=== PATIENT | female | born 1960 | race Caucasian/White ===

== ENCOUNTER 2017-05-23 21:59 | Emergency (ER) | payer OTHER, MEDICAID ==
[~2017-05-23] VITALS: Ht 157.5 cm; Wt 86.2 kg
[~2017-05-23 21:59] MED LIST: ACET167L15 PO; ACET325T53 PO; BISA5TAB10 PO; CAT.1 PO; DICL100G16 TP; DOCU-144 PO; DULO60CA64 PO; GABA-531 PO; LACT10SO6 PO; LUBI24CA5 PO; MET10 PO; MONT10TA25 PO; MORP60TA34 PO; MORPHINE IR PO; MULT-1089 PO; NALO25TA PO; OXYC-130 PO; OXYC-133 PO; PERC10 GT; PRAM28.3 RC; SENN8.6T19 PO; SULF-261 PO; [UNRECOGNIZED DRUG - CODE] PO
[2017-05-23 22:00] VITALS: BP_SYST 196
--- NOTE | 2017-05-23 22:00 | NUR ---
Patient to ER bed 1 to gown for evaluation. Side rails up. Report given to JOON JOSEPH.
--- NOTE | 2017-05-23 22:10 | NUR ---
Patient brought to ER by ambulance from facility C/O 06/07 RLQ abdominal pain, radiating to right hip and pelvis. Denies N/V/D/C. state sthat she is taking pain medications around the clock but pain is unrelieved. Denies injury or trauma. AAOx4, unlabored breathing, no signs of acute distress.
--- NOTE | 2017-05-23 22:16 | NUR ---
ER MD Jenny lyn at bedside evaluating the patient
[2017-05-23] MEDS ORDERED: NACL 0.9% 1,000 ML IV ONE (22:30)
[2017-05-23] MEDS ORDERED: KETOROLAC TROMETHAMINE 30 MG VIAL IVP ONE (22:30)
--- NOTE | 2017-05-23 22:40 | NUR ---
# 20 gauge angiocath placed to RIGHT WRIST. Use of asceptic technique. Opsite placed over site. Blood return noted. Blood for lab drawn from site. Flushed with 10 cc of normal saline. No evidence of infiltration noted. Patient tolerated well.
[2017-05-23 22:53] LABS: BASOPHILS # (AUTO) 0.1 K/uL (0.0-0.2); EOSINOPHILS # (AUTO) 0.3 K/uL (0.0-0.4); EOSINOPHILS % (AUTO) 4.5 % (0.0-4.0); HEMATOCRIT 33.6 % (36-48); HEMOGLOBIN 10.8 g/dL (12.0-16.0); LYMPHOCYTES # (AUTO) 1.5 K/uL (1.0-5.5); LYMPHOCYTES % (AUTO) 22.2 % (20.5-51.5); MEAN CORPUSCULAR HEMOGLOBIN 26 pg (27-31); MEAN CORPUSCULAR HGB CONC 32 % (32-36); MEAN CORPUSCULAR VOLUME 82 fL (79.0-98.0); MONOCYTES # (AUTO) 0.7 K/uL (0.0-1.0); NEUTROPHILS # (AUTO) 4.3 K/uL (1.8-7.7); NEUTROPHILS % (AUTO) 62.3 % (40.0-70.0); PLATELET COUNT (AUTO) 399 K/uL (130-430); RED CELL DISTRIBUTION WIDTH 13.8 % (9.0-15.0); WHITE BLOOD COUNT (AUTO) 6.9 K/uL (4.8-10.8)
[2017-05-23 23:02] LABS: CALCIUM 9.3 mg/dL (8.4-11.0); CREATININE 0.69 mg/dL (0.55-1.30); POTASSIUM 3.6 mmol/L (3.5-5.1)
[2017-05-23 23:07] LABS: TOTAL BILIRUBIN 0.1 mg/dL (0.0-1.0)
[2017-05-23 23:08] LABS: BILIRUBIN,URINE NEGATIVE (NEGATIVE); BLOOD, URINE TRACE (NEGATIVE); CLARITY/URINE CLEAR (CLEAR); COLOR,URINE YELLOW (YELLOW); GLUCOSE,URINE NEGATIVE (NEGATIVE); KETONES,URINE NEGATIVE (NEGATIVE); LEUKOCYTE ESTERASE ,URINE NEGATIVE (NEGATIVE); NITRITE, URINE NEGATIVE (NEGATIVE); PROTEIN URINE NEGATIVE (NEGATIVE); UROBILINOGEN,URINE 0.2 (0.2-1.0)
[2017-05-23 23:11] LABS: BACTERIA,URINE FEW /HPF (None Seen); RBC,URINE 0-3 /HPF (0-3); WBC,URINE 0-3 /HPF (0-3)
--- NOTE | 2017-05-23 23:18 | NUR ---
Patient reports pain 4/10 15 minutes after administration of toradol & NS. No adverse reactions noted. Will continue to monitor.
--- NOTE | 2017-05-24 00:11 | NUR ---
Patient off the unit via gurney for CT
[2017-05-24] MEDS ORDERED: IOHEXOL 100 ML IV ONE (00:14)
--- NOTE | 2017-05-24 01:20 | NUR ---
Patient calm on gurney, no signs of acute distress. VS WNL
[2017-05-24 02:50] VITALS: BP_SYST 144
--- NOTE | 2017-05-24 02:50 | NUR ---
Patient given written and verbal discharge instructions and verbalizes understanding. ER MD Alvarado discussed with patient the results and treatment provided. Patient in stable condition. ID arm band removed. IV catheter removed intact and dressing applied, no active bleeding. Patient educated on pain management and to follow up with PMD. Pain Scale 0/10. Opportunity for questions provided and answered. Patient transported back to home facility by [facility] ambulance Report given at home facility to [place] @ [phone]
== END 2017-05-24 02:50 | disposition home or self-care (01) ==
LOC: SED 21:59
DX: R59.0 Localized enlarged lymph nodes (principal); D64.9 Anemia, unspecified; I10 Essential (primary) hypertension; E78.5 Hyperlipidemia, unspecified; F32.9 Major depressive disorder, single episode, unspecified; Z90.710 Acquired absence of both cervix and uterus; Z88.0 Allergy status to penicillin; Z88.5 Allergy status to narcotic agent; Z88.1 Allergy status to other antibiotic agents; Z79.899 Other long term (current) drug therapy
CPT/HCPCS: 36415; 74177; 80053; 81000; 83690; 85025; 96361; 96374; 99285; J1885; J7030; Q9967

== ENCOUNTER 2019-09-18 19:40 | Emergency (ER) | payer OTHER, MEDICAID ==
[~2019-09-18] VITALS: Ht 157.5 cm; Wt 99.8 kg
[~2019-09-18 19:40] MED LIST changes: -DICL100G16 TP; +DICL100G19 TP; -DULO60CA64 PO; +DULO60CA65 PO
[2019-09-18 19:49] VITALS: BP_SYST 186
--- NOTE | 2019-09-18 19:49 | NUR ---
Pt BIB ALS from [facility] for HTN and intermittent abdominal pain with nausea that has been progressively worsening since 1700 today. Per EMS, Nurse sent pt to ER r/t B/P 230/110. Pt presently states that she feel better.
--- NOTE | 2019-09-18 20:00 | NUR ---
Dr. Acuña at bedside.
[2019-09-18] MEDS ORDERED: NACL 0.9% 1,000 ML IV ONE (20:07)
[2019-09-18] MEDS ORDERED: PROCHLORPERAZINE EDISYLATE 10 MG/2 ML VIAL IVP ONE (20:15)
[2019-09-18 20:17] LABS: BILIRUBIN,URINE NEGATIVE (NEGATIVE); BLOOD, URINE NEGATIVE (NEGATIVE); CLARITY/URINE CLEAR (CLEAR); GLUCOSE,URINE NEGATIVE (NEGATIVE); KETONES,URINE NEGATIVE (NEGATIVE); LEUKOCYTE ESTERASE ,URINE NEGATIVE (NEGATIVE); NITRITE, URINE NEGATIVE (NEGATIVE); PROTEIN URINE NEGATIVE (NEGATIVE); UROBILINOGEN,URINE 0.2 (0.2-1.0)
--- NOTE | 2019-09-18 20:24 | NUR ---
X-ray at bedside.
[2019-09-18] MEDS ORDERED: cloNIDine HCL 0.1 MG TABLET PO ONE (20:30)
[2019-09-18] MEDS ORDERED: PANTOPRAZOLE SODIUM 40 MG/VIAL (PROTONIX) IVP ONE (20:30)
[2019-09-18 20:32] LABS: COLOR,URINE STRAW (YELLOW)
--- NOTE | 2019-09-18 21:00 | NUR ---
# 22 gauge angiocath placed to LUE. Use of asceptic technique. Opsite placed over site. Blood return noted. Blood for lab drawn from site. Flushed with 10 cc of normal saline. No evidence of infiltration noted. Patient tolerated well.
--- NOTE | 2019-09-18 21:08 | NUR ---
Specimen collected for influenza antigen from right nare, sent to lab.
[2019-09-18 21:15] LABS: BASOPHILS # (AUTO) 0.1 K/uL (0.0-0.2); BASOPHILS % (AUTO) 0.8 % (0.0-2.0); EOSINOPHILS # (AUTO) 0.1 K/uL (0.0-0.4); EOSINOPHILS % (AUTO) 0.8 % (0.0-4.0); HEMATOCRIT 43.1 % (36-48); HEMOGLOBIN 14.1 g/dL (12.0-16.0); LYMPHOCYTES # (AUTO) 0.8 K/uL (1.0-5.5); LYMPHOCYTES % (AUTO) 11.7 % (20.5-51.5); MEAN CORPUSCULAR HEMOGLOBIN 29 pg (27-31); MEAN CORPUSCULAR HGB CONC 33 % (32-36); MEAN CORPUSCULAR VOLUME 88 fL (79.0-98.0); MONOCYTES # (AUTO) 0.4 K/uL (0.0-1.0); MONOCYTES % (AUTO) 5.5 % (1.7-9.3); NEUTROPHILS # (AUTO) 5.8 K/uL (1.8-7.7); NEUTROPHILS % (AUTO) 81.2 % (40.0-70.0); PLATELET COUNT (AUTO) 308 K/uL (130-430); RED BLOOD CELL COUNT(AUTO) 4.87 MIL/uL (4.2-6.2); RED CELL DISTRIBUTION WIDTH 13.7 % (9.0-15.0); WHITE BLOOD COUNT (AUTO) 7.2 K/uL (4.8-10.8)
[2019-09-18 21:36] LABS: CALCIUM 8.8 mg/dL (8.4-11.0); CREATININE 0.75 mg/dL (0.55-1.30); POTASSIUM 3.4 mmol/L (3.5-5.1)
[2019-09-18 21:42] LABS: ALBUMIN 3.8 g/dL (3.4-4.8); TOTAL BILIRUBIN 0.3 mg/dL (0.0-1.0)
[2019-09-18] MEDS ORDERED: hydrALAZINE HCL 20 MG/ML VIAL IVP ONE (23:15)
--- NOTE | 2019-09-18 23:55 | NUR ---
Blood pressure is currently 155/79. Dr. Acuña made aware. Per Dr. Acuña, hold off on Apresoline 5mg IVP.
--- NOTE | 2019-09-19 02:26 | NUR ---
Patient given written and verbal discharge instructions and verbalizes understanding. ER MD discussed with patient the results and treatment provided. Patient in stable condition. ID arm band removed. IV catheter removed intact and dressing applied, no active bleeding. Rx of Protonix given. Patient educated on pain management and to follow up with PMD. Pain Scale 0. Opportunity for questions provided and answered. Medication side effect fact sheet provided.
[2019-09-19 02:27] VITALS: BP_SYST 135
== END 2019-09-19 02:27 | disposition home or self-care (01) ==
LOC: SED 19:40
DX: K29.70 Gastritis, unspecified, without bleeding (principal); I10 Essential (primary) hypertension; F32.9 Major depressive disorder, single episode, unspecified; Z88.0 Allergy status to penicillin; Z88.1 Allergy status to other antibiotic agents; Z88.5 Allergy status to narcotic agent; Z79.899 Other long term (current) drug therapy
CPT/HCPCS: 36415; 71045; 80053; 81003; 83690; 83880; 84484; 85025; 86710; 93005; 96361; 96374; 96375; 99284; C9113; J0360; J0780; J7030

== ENCOUNTER 2022-04-07 19:05 | Emergency (ER) | payer OTHER, MEDICAID ==
[~2022-04-07] VITALS: Ht 154.9 cm; Wt 97.5 kg
[~2022-04-07 19:05] MED LIST changes: -MET10 PO; +METH-797 PO; +MONT-40 PO; -MONT10TA25 PO; -NALO25TA PO; +NALO25TA4 PO
[2022-04-07 19:28] VITALS: BP_SYST 166
--- NOTE | 2022-04-07 19:30 | NUR ---
PLACED IN BED #7 BY [facility] EMT. RIGHT SHOULDER SLING IN PLACE PER EMS. REPORT FROM EMT. ICE PACK PROVIDED. POSITION OF COMFORT. SIDE RAIL UP. PT FROM [facility].
[2022-04-07] MEDS ORDERED: MORPHINE 4 MG INJ. 4 MG/ML VIAL IVP ONE (19:45)
[2022-04-07] MEDS ORDERED: LIDOCAINE 1% 10 MG/ML, 50 ML MDV INJ ONE (20:45)
[2022-04-07] MEDS ORDERED: LIDOCAINE 1%, 20 ML MDV 20 ML ONE (20:54)
--- NOTE | 2022-04-07 21:01 | NUR ---
pt in bed. comfortable and medicated to cover he r10/10 RT shoulder pain. s/p dislocation
--- NOTE | 2022-04-07 21:36 | NUR ---
Patient given written and verbal discharge instructions and verbalizes understanding. ER MD discussed with patient the results and treatment provided. Patient in stable condition. ID arm band removed. IV catheter removed intact and dressing applied, no active bleeding. Patient educated on pain management and to follow up with PMD. Pain Scale 0. Opportunity for questions provided and answered. Medication side effect fact sheet provided.
--- NOTE | 2022-04-07 21:44 | NUR ---
ARM SLING APPLIED ; PENDING RIDE; IV REMOVED
[2022-04-07 22:08] VITALS: BP_SYST 125
== END 2022-04-07 22:10 | disposition home or self-care (01) ==
LOC: SED 19:05
DX: G56.91 Unspecified mononeuropathy of right upper limb (principal); M24.411 Recurrent dislocation, right shoulder; M25.511 Pain in right shoulder; I10 Essential (primary) hypertension; Z88.0 Allergy status to penicillin; Z88.1 Allergy status to other antibiotic agents; Z88.5 Allergy status to narcotic agent; Z79.899 Other long term (current) drug therapy
CPT/HCPCS: 99283; 96374; 73030; J2001; J2270

== ENCOUNTER 2022-12-02 02:10 | Emergency (ER) | payer OTHER, MEDICAID ==
[~2022-12-02] VITALS: Ht 154.9 cm; Wt 99.8 kg
[~2022-12-02 02:10] MED LIST changes: +BISA-140 PO; -BISA5TAB10 PO
--- NOTE | 2022-12-02 02:21 | NUR ---
PT [facility] [id number] [facility] C/O RECTAL BLEED BRIGHT RED THAT STARTED AT 10AM YESTERDAY AM. PMH: HEMORRHOIDS, COPD, HLD, HTN, ANEMIA
[2022-12-02 02:22] VITALS: BP_SYST 166
--- NOTE | 2022-12-02 02:36 | NUR ---
pt is aa&ox4. BELARUSIAN SPEAKING. NAD. DENIES PAIN, AFEBRILE. ELECTRIC WHEELCHAIR BOUND AT THE ASSISTED LIVING.
--- NOTE | 2022-12-02 03:41 | NUR ---
ER at bedside examining patient.
[2022-12-02] MEDS ORDERED: HYDR30CR79 TP (03:48)
[2022-12-02 04:26] VITALS: BP_SYST 148
--- NOTE | 2022-12-02 08:50 | NUR ---
Patient given written and verbal discharge instructions and verbalizes understanding. ER MD discussed with patient the results and treatment provided. Patient in stable condition. ID arm band removed. IV catheter removed intact and dressing applied, no active bleeding. Opportunity for questions provided and answered.
== END 2022-12-02 08:50 ==
LOC: SED 02:10
DX: K64.9 Unspecified hemorrhoids (principal); R42 Dizziness and giddiness; K62.89 Other specified diseases of anus and rectum; I10 Essential (primary) hypertension; Z88.0 Allergy status to penicillin; Z88.5 Allergy status to narcotic agent; Z88.8 Allergy status to other drugs, medicaments and biological substances; Z79.899 Other long term (current) drug therapy
CPT/HCPCS: 99283

== ENCOUNTER 2023-02-25 11:02 | Emergency (ER) | payer OTHER, MEDICAID ==
[~2023-02-25] VITALS: Ht 157.5 cm; Wt 81.6 kg
[~2023-02-25 11:02] MED LIST changes: +HYDR30CR79 TP
[2023-02-25 11:21] VITALS: BP_SYST 194
--- NOTE | 2023-02-25 11:31 | NUR ---
63 yo[facility]f [facility] headache pounding x 3days. no chest, pain, sob. pt took morphine, methadone, and tramadol at 0830. pmh: copd, high chol, polyneuropathy, osteoarthritis, htn, anemia, scoliosis
--- NOTE | 2023-02-25 11:46 | NUR ---
michela padron bedside assessing pt
[2023-02-25 11:59] LABS: BILIRUBIN,URINE NEGATIVE (NEGATIVE); CLARITY/URINE SL CLOUDY (CLEAR); COLOR,URINE YELLOW (YELLOW); GLUCOSE,URINE NEGATIVE (NEGATIVE); KETONES,URINE 1+ (NEGATIVE); LEUKOCYTE ESTERASE ,URINE TRACE (NEGATIVE); NITRITE, URINE NEGATIVE (NEGATIVE); PROTEIN URINE 1+ (NEGATIVE); UROBILINOGEN,URINE 0.2 (0.2-1.0)
[2023-02-25] MEDS ORDERED: MORPHINE 4 MG INJ. 4 MG/ML VIAL IVP ONE (12:00)
[2023-02-25 12:06] LABS: BLOOD, URINE TRACE (NEGATIVE)
--- NOTE | 2023-02-25 12:15 | NUR ---
PT TAKEN TO CT
[2023-02-25 12:22] LABS: BACTERIA,URINE RARE /HPF (None Seen); MUCUS,URINE 1+ /LPF (None Seen)
--- NOTE | 2023-02-25 12:50 | NUR ---
PT REPORTS HEADACHE HAS RESOLVED AT THIS TIME.
--- NOTE | 2023-02-25 15:45 | NUR ---
XIAO FROM [facility] AWARE PT TO BE TRANSPORTED BACK IN THE NEXT 5 MINS.
[2023-02-25 15:48] VITALS: BP_SYST 158
--- NOTE | 2023-02-25 15:48 | NUR ---
Patient given written and verbal discharge instructions and verbalizes understanding. ER MD discussed with patient the results and treatment provided. Patient in stable condition. ID arm band removed. IV catheter removed intact and dressing applied, no active bleeding. Patient educated on pain management and to follow up with PMD. Pain Scale . Opportunity for questions provided and answered. Medication side effect fact sheet provided.
== END 2023-02-25 15:48 | disposition home or self-care (01) ==
LOC: SED 11:02
DX: R51.9 Headache, unspecified (principal); I10 Essential (primary) hypertension; Z88.0 Allergy status to penicillin; Z88.1 Allergy status to other antibiotic agents; Z88.5 Allergy status to narcotic agent; Z79.899 Other long term (current) drug therapy
CPT/HCPCS: 99285; 96374; 70450; 81000; 76376; J2270

== ENCOUNTER 2023-03-30 19:28 | Emergency (ER) | payer OTHER, MEDICAID ==
[~2023-03-30] VITALS: Ht 157.5 cm; Wt 90.7 kg
[2023-03-30 19:32] VITALS: BP_SYST 158; PULSE 96; RESP 20; TEMP 98.1; O2SAT 97
--- NOTE | 2023-03-30 20:24 | NUR ---
Patient to ER bed 4 to gown for evaluation. Side rails up. Report given to RUDDY DUPREE(REG).
--- NOTE | 2023-03-30 20:30 | NUR ---
FIRST CONTACT WITH PT. ASSESSMENT COMPLETED. AWAITING EVAL AND ORDERS.
[2023-03-30 20:43] LABS: ALBUMIN 3.6 g/dL (3.4-4.8); CALCIUM 9.1 mg/dL (8.4-11.0); CREATININE 1.1 mg/dL (0.55-1.30); TOTAL BILIRUBIN 0.3 mg/dL (0.0-1.0)
[2023-03-30 20:44] LABS: BASOPHILS # (AUTO) 0.1 K/uL (0.0-0.2); BASOPHILS % (AUTO) 0.9 % (0.0-2.0); EOSINOPHILS # (AUTO) 0.1 K/uL (0.0-0.4); EOSINOPHILS % (AUTO) 1.6 % (0.0-4.0); HEMOGLOBIN 12.6 g/dL (12.0-16.0); LYMPHOCYTES # (AUTO) 1.3 K/uL (1.0-5.5); MEAN CORPUSCULAR HEMOGLOBIN 29 pg (27-31); MEAN CORPUSCULAR HGB CONC 33 % (32-36); MEAN CORPUSCULAR VOLUME 88 fL (79.0-98.0); MONOCYTES # (AUTO) 0.9 K/uL (0.0-1.0); MONOCYTES % (AUTO) 10.6 % (1.7-9.3); NEUTROPHILS # (AUTO) 6.5 K/uL (1.8-7.7); NEUTROPHILS % (AUTO) 72.9 % (40.0-70.0); PLATELET COUNT (AUTO) 293 K/uL (130-430); RED BLOOD CELL COUNT(AUTO) 4.35 MIL/uL (4.2-6.2); RED CELL DISTRIBUTION WIDTH 14.3 % (9.0-15.0); WHITE BLOOD COUNT (AUTO) 8.9 K/uL (4.8-10.8)
--- NOTE | 2023-03-30 21:13 | NUR ---
URINE COLLECTED PER ORDER. SENT TO LAB.
[2023-03-30] MEDS ORDERED: LORazepam 1 MG TABLET PO ONE (22:00)
[2023-03-30 23:17] LABS: BILIRUBIN,URINE NEGATIVE (NEGATIVE); CLARITY/URINE CLEAR (CLEAR); COLOR,URINE YELLOW (YELLOW); GLUCOSE,URINE NEGATIVE (NEGATIVE); KETONES,URINE NEGATIVE (NEGATIVE); LEUKOCYTE ESTERASE ,URINE NEGATIVE (NEGATIVE); NITRITE, URINE NEGATIVE (NEGATIVE); PROTEIN URINE NEGATIVE (NEGATIVE); UROBILINOGEN,URINE 0.2 (0.2-1.0)
[2023-03-30 23:26] LABS: BLOOD, URINE TRACE (NEGATIVE)
[2023-03-30 23:44] LABS: BACTERIA,URINE FEW /HPF (None Seen); MUCUS,URINE None Seen /LPF (None Seen); RBC,URINE 0-3 /HPF (0-3); WBC,URINE 0-3 /HPF (0-3)
--- NOTE | 2023-03-31 01:26 | NUR ---
Patient given written and verbal discharge instructions and verbalizes understanding. ER MD sr discussed with patient the results and treatment provided. Patient in stable condition. ID arm band removed. IV catheter removed intact and dressing applied, no active bleeding. Rx of none given. Patient educated on pain management and to follow up with PMD. Pain Scale . Opportunity for questions provided and answered. Medication side effect fact sheet provided.
[2023-03-31 01:28] VITALS: BP_SYST 142; PULSE 82; RESP 16; TEMP 98.1; O2SAT 96
== END 2023-03-31 01:28 | disposition home or self-care (01) ==
LOC: SED 19:28
DX: R33.9 Retention of urine, unspecified (principal); F41.9 Anxiety disorder, unspecified; I10 Essential (primary) hypertension; Z88.0 Allergy status to penicillin; Z88.1 Allergy status to other antibiotic agents; Z88.5 Allergy status to narcotic agent; Z79.899 Other long term (current) drug therapy
CPT/HCPCS: 36415; 80053; 81000; 83690; 85025; 99283; 99284

== ENCOUNTER 2023-06-28 14:41 | Emergency (ER) | payer OTHER, MEDICAID ==
[~2023-06-28] VITALS: Ht 157.5 cm; Wt 81.6 kg
[2023-06-28 14:45] VITALS: PULSE 96; RESP 18; TEMP 97.1; O2SAT 99
[2023-06-28] MEDS ORDERED: MORPHINE 4 MG INJ. 4 MG/ML VIAL IM ONE (15:45)
[2023-06-28 17:09] LABS: BILIRUBIN,URINE NEGATIVE (NEGATIVE); BLOOD, URINE NEGATIVE (NEGATIVE); COLOR,URINE YELLOW (YELLOW); GLUCOSE,URINE NEGATIVE (NEGATIVE); KETONES,URINE 1+ (NEGATIVE); LEUKOCYTE ESTERASE ,URINE NEGATIVE (NEGATIVE); NITRITE, URINE NEGATIVE (NEGATIVE); PH,URINE 5.5 (5.0-8.0); PROTEIN URINE TRACE (NEGATIVE); UROBILINOGEN,URINE 0.2 (0.2-1.0)
[2023-06-28 17:10] LABS: CLARITY/URINE SLIGHTLY CLOUDY (CLEAR)
[2023-06-28] MEDS ORDERED: HYDR-3927 PO (17:35)
[2023-06-28] MEDS ORDERED: SULF1TAB48 PO (17:35)
[2023-06-28] MEDS ORDERED: HYDROcodone/ACETAMIN 5-325 MG TAB (NORCO/ VICODIN) PO ONE (17:45)
[2023-06-28] MEDS ORDERED: SULFAMETHOXAZOLE/TRIMETHOPR DS 1 TABLET PO ONE (17:45)
[2023-06-28 18:20] LABS: RBC,URINE 0-3 /HPF (0-3); WBC,URINE 0-3 /HPF (0-3)
[2023-06-28 18:21] LABS: BACTERIA,URINE MANY /HPF (None Seen); CALCIUM OXALATE CRYSTALS,UR 0-10 /HPF (None Seen); MUCUS,URINE 1+ /LPF (None Seen)
[2023-06-28 19:43] VITALS: BP_SYST 159; PULSE 94; RESP 18; TEMP 98.6; O2SAT 96
== END 2023-06-28 19:47 | disposition home or self-care (01) ==
LOC: SED 14:41
DX: N30.90 Cystitis, unspecified without hematuria (principal); G89.29 Other chronic pain; M54.50 Low back pain, unspecified; I10 Essential (primary) hypertension; Z88.0 Allergy status to penicillin; Z88.1 Allergy status to other antibiotic agents; Z88.5 Allergy status to narcotic agent; Z79.899 Other long term (current) drug therapy
CPT/HCPCS: 99283; 81001; 87086; 96372; 81003; 81000; 81015; J2270

== ENCOUNTER 2023-06-29 14:59 | Emergency (ER) | payer OTHER, MEDICAID ==
[~2023-06-29] VITALS: Ht 157.5 cm; Wt 86.2 kg
[~2023-06-29 14:59] MED LIST changes: +HYDR-3927 PO; +SULF1TAB48 PO
[2023-06-29 15:00] VITALS: BP_SYST 132; PULSE 106; RESP 19; TEMP 98.2; O2SAT 97
[2023-06-29] MEDS ORDERED: MORPHINE 4 MG INJ. 4 MG/ML VIAL IVP ONE (16:15)
[2023-06-29 18:11] VITALS: BP_SYST 128; PULSE 86; RESP 16; TEMP 98; O2SAT 97
== END 2023-06-29 16:20 | disposition home or self-care (01) ==
LOC: SED 14:59
DX: G89.29 Other chronic pain (principal); M54.50 Low back pain, unspecified; I10 Essential (primary) hypertension; Z88.0 Allergy status to penicillin; Z88.1 Allergy status to other antibiotic agents; Z88.5 Allergy status to narcotic agent; Z79.899 Other long term (current) drug therapy
CPT/HCPCS: 99283; 96372; J2270

== ENCOUNTER 2023-09-19 18:11 | Emergency (ER) | payer OTHER, MEDICAID ==
[~2023-09-19] VITALS: Ht 157.5 cm; Wt 86.2 kg
[2023-09-19 18:20] VITALS: BP_SYST 143; PULSE 79; RESP 19; TEMP 97.9; O2SAT 99
[2023-09-19] MEDS ORDERED: HYDR25TA4 PO (19:56)
[2023-09-19] MEDS ORDERED: GABA-531 PO (19:56)
[2023-09-19] MEDS ORDERED: VIS10 PO (19:56)
[2023-09-19] MEDS ORDERED: PRO40 PO (19:56)
[2023-09-19] MEDS ORDERED: CLON0.1T PO (19:56)
[2023-09-19] MEDS ORDERED: DOCU250C75 PO (19:56)
[2023-09-19] MEDS ORDERED: LUBI24CA5 PO (19:56)
[2023-09-19] MEDS ORDERED: LOSA50TA28 PO (19:56)
[2023-09-19] MEDS ORDERED: MONT-47 PO (19:56)
[2023-09-19] MEDS ORDERED: IBUP800T54 PO (19:56)
[2023-09-19 20:38] VITALS: BP_SYST 153; PULSE 77; RESP 20; TEMP 97; O2SAT 97
[2023-09-19] MEDS ORDERED: KETOROLAC TROMETHAMINE 30 MG VIAL IM ONE (20:45)
[2023-09-19] MEDS ORDERED: ACETAMINOPHEN 500 MG TABLET PO ONE (20:45)
[2023-09-19] MEDS ORDERED: KETOROLAC TROMETHAMINE 30 MG VIAL IVP ONE (21:00)
[2023-09-19 21:06] LABS: BASOPHILS # (AUTO) 0.1 K/uL (0.0-0.2); BASOPHILS % (AUTO) 1.3 % (0.0-2.0); EOSINOPHILS # (AUTO) 0.1 K/uL (0.0-0.4); EOSINOPHILS % (AUTO) 2.4 % (0.0-4.0); HEMATOCRIT 40.8 % (36-48); LYMPHOCYTES # (AUTO) 1.7 K/uL (1.0-5.5); LYMPHOCYTES % (AUTO) 31.2 % (20.5-51.5); MEAN CORPUSCULAR HEMOGLOBIN 31 pg (27-31); MEAN CORPUSCULAR HGB CONC 34 % (32-36); MEAN CORPUSCULAR VOLUME 89 fL (79.0-98.0); MONOCYTES # (AUTO) 0.5 K/uL (0.0-1.0); MONOCYTES % (AUTO) 9.5 % (1.7-9.3); NEUTROPHILS % (AUTO) 55.6 % (40.0-70.0); PLATELET COUNT (AUTO) 329 K/uL (130-430); RED BLOOD CELL COUNT(AUTO) 4.58 MIL/uL (4.2-6.2); RED CELL DISTRIBUTION WIDTH 13.4 % (9.0-15.0); WHITE BLOOD COUNT (AUTO) 5.3 K/uL (4.8-10.8)
[2023-09-19 21:33] LABS: CALCIUM 9.8 mg/dL (8.4-11.0); CREATININE 0.71 mg/dL (0.55-1.30); POTASSIUM 3.4 mmol/L (3.5-5.1)
[2023-09-20] MEDS ORDERED: MIDAZOLAM HCL 2 MG/2 ML VIAL (VERSED) ONE (12:54)
[2023-09-20] MEDS ORDERED: fentaNYL CITRATE/PF 100 MCG/2 ML AMP ONE (12:55)
== END 2023-09-19 22:55 | disposition home or self-care (01) ==
LOC: SED 18:11
DX: M25.511 Pain in right shoulder (principal); I10 Essential (primary) hypertension; Z88.0 Allergy status to penicillin; Z88.1 Allergy status to other antibiotic agents; Z88.5 Allergy status to narcotic agent; Z79.899 Other long term (current) drug therapy
CPT/HCPCS: 99285; 96374; 80048; 85025; 84484; 36415; 93005; 73030; J1885; J3010; J3465

== ENCOUNTER 2023-11-14 17:25 | Emergency (ER) | payer OTHER, MEDICAID ==
[~2023-11-14] VITALS: Ht 157.5 cm; Wt 86.2 kg
[~2023-11-14 17:25] MED LIST changes: -ACET167L15 PO; -ACET325T53 PO; -BISA-140 PO; -CAT.1 PO; +CLON0.1T PO; -DICL100G19 TP; -DOCU-144 PO; +DOCU250C75 PO; -DULO60CA65 PO; -HYDR-3927 PO; +HYDR25TA4 PO; -HYDR30CR79 TP; +IBUP800T54 PO; -LACT10SO6 PO; +LOSA50TA28 PO; -METH-797 PO; -MONT-40 PO; +MONT-47 PO; -MORP60TA34 PO; -MORPHINE IR PO; -MULT-1089 PO; -NALO25TA4 PO; -OXYC-130 PO; -OXYC-133 PO; -PERC10 GT; -PRAM28.3 RC; +PRO40 PO; -SENN8.6T19 PO; -SULF-261 PO; -SULF1TAB48 PO; +VIS10 PO; -[UNRECOGNIZED DRUG - CODE] PO
[2023-11-14 17:51] VITALS: BP_SYST 230; PULSE 96; RESP 22; TEMP 98.3; O2SAT 98
[2023-11-14] MEDS: LABETALOL HCL 20 MG/4 ML CARTRIDGE IVP ONE (18:46)
[2023-11-14 19:07] LABS: BASOPHILS % (AUTO) 0.6 % (0.0-2.0); EOSINOPHILS % (AUTO) 0.1 % (0.0-4.0); HEMATOCRIT 39.4 % (36-48); HEMOGLOBIN 13.3 g/dL (12.0-16.0); LYMPHOCYTES # (AUTO) 1.1 K/uL (1.0-5.5); LYMPHOCYTES % (AUTO) 15.9 % (20.5-51.5); MEAN CORPUSCULAR HEMOGLOBIN 30 pg (27-31); MEAN CORPUSCULAR HGB CONC 34 % (32-36); MEAN CORPUSCULAR VOLUME 89 fL (79.0-98.0); MONOCYTES # (AUTO) 0.4 K/uL (0.0-1.0); MONOCYTES % (AUTO) 5.7 % (1.7-9.3); NEUTROPHILS # (AUTO) 5.5 K/uL (1.8-7.7); NEUTROPHILS % (AUTO) 77.7 % (40.0-70.0); PLATELET COUNT (AUTO) 332 K/uL (130-430); RED BLOOD CELL COUNT(AUTO) 4.44 MIL/uL (4.2-6.2); RED CELL DISTRIBUTION WIDTH 13.3 % (9.0-15.0)
[2023-11-14 19:30] LABS: ANION GAP 7 (5-15); CALCIUM 9.7 mg/dL (8.4-11.0); CARBON DIOXIDE 28 mmol/L (23-29); CHLORIDE 107 mmol/L (98-107); CREATININE 0.57 mg/dL (0.55-1.30); GFR AFRICAN AMERICAN 137 mL/min (>90); GFR NON AFRICAN-AMERICAN 113 mL/min (>90); GLUCOSE 93 mg/dL (74-106); POTASSIUM 4.1 mmol/L (3.5-5.1); SODIUM SERUM 142 mmol/L (136-145); UREA NITROGEN, BLOOD 23 mg/dL (8-21)
[2023-11-14] MEDS: cloNIDine HCL 0.1 MG TABLET PO ONE (20:46)
[2023-11-14 21:46] VITALS: BP_SYST 164; PULSE 64; RESP 16; TEMP 98.3; O2SAT 97
== END 2023-11-14 21:36 | disposition home or self-care (01) ==
LOC: SED 17:25
DX: I16.0 Hypertensive urgency (principal); I10 Essential (primary) hypertension; R42 Dizziness and giddiness; R51.9 Headache, unspecified; Z88.0 Allergy status to penicillin; Z88.1 Allergy status to other antibiotic agents; Z88.5 Allergy status to narcotic agent; Z79.899 Other long term (current) drug therapy
CPT/HCPCS: 36415; 70450-TC; 80048; 84484; 85025; 93005; 96374; 99285